=== PATIENT | male | born 1960 | race Caucasian/White ===

== ENCOUNTER 2022-11-07 16:44 | Outpatient (CLI) | payer BC, OTHER | END 2022-11-07 16:45 | disposition home or self-care (01) | LOC: CSHCT 16:44 | PROVIDERS: ATTEND Podiatrist Foot & Ankle Surgery | DX: L97.519 Non-pressure chronic ulcer of other part of right foot with unspecified severity (principal) ==

== ENCOUNTER 2022-12-06 09:54 | Day surgery (SDC) | payer BC ==
[2022-12-04 14:39] VITALS: BMI 30.2
[2022-12-06] MEDS ORDERED: Bupivacaine PF 0.5% 30 ML VIAL ONE (11:17)
[2022-12-06] MEDS ORDERED: Neomycin-Polymyxin 1 ML AMP ONE (11:18)
[2022-12-06] MEDS ORDERED: CEFAZOLIN 2 GM VIAL ONE (11:59)
== END 2022-12-06 14:06 | disposition home or self-care (01) ==
LOC: CSHSDC 09:54
PROVIDERS: ATTEND Podiatrist Foot & Ankle Surgery
PROC: 0SGP0JZ Fusion of Right Toe Phalangeal Joint with Synthetic Substitute, Open Approach (ICD-10-PCS; principal; 2022-12-06)
DX: L97.512 Non-pressure chronic ulcer of other part of right foot with fat layer exposed (principal); I12.0 Hypertensive chronic kidney disease with stage 5 chronic kidney disease or end stage renal disease; E11.22 Type 2 diabetes mellitus with diabetic chronic kidney disease; N18.6 End stage renal disease; E11.42 Type 2 diabetes mellitus with diabetic polyneuropathy; E78.00 Pure hypercholesterolemia, unspecified; Z94.0 Kidney transplant status; Z95.0 Presence of cardiac pacemaker
CPT/HCPCS: 36416; C1713; C1776; S0020

== ENCOUNTER 2023-01-02 16:37 | Outpatient (CLI) | payer BC | END 2023-01-02 16:38 | disposition home or self-care (01) | LOC: CSHRAD 16:37 | PROVIDERS: ATTEND Internal Medicine | DX: R05.9 Cough, unspecified (principal); R91.8 Other nonspecific abnormal finding of lung field | CPT/HCPCS: 71046 ==

== ENCOUNTER 2023-10-11 23:44 | Emergency (ER) | payer BC, OTHER ==
[2023-10-12] MEDS ORDERED: Ipratropium Bromide 2.5 ml Neb ONE (00:19)
[2023-10-12 00:40] LABS: SARS-CoV-2 NAA Rapid Test Not Detected (NotDetected)
[2023-10-12 00:51] LABS: #Monocytes 0.3 10x3/uL (0.0-1.1); #Neutrophils 3.7 10x3/uL (1.5-8.4); %Basophils 0.7 % (0.0-2.0); %Eosinophils 0.2 % (0.0-6.0); %Lymphocytes 10.4 % (18.0-47.0); %Neutrophils 82.3 % (40.0-75.0); Hematocrit 43.5 % (38.8-50.0); Hemoglobin 14.4 g/dL (13.5-17.5); Mean Corpuscular HGB CONC 33.1 g/dL (32.0-36.0); Mean Corpuscular Hemoglobin 30.3 pg (27.0-33.0); Mean Corpuscular Volume 91.4 fl (81.2-95.1); Mean Platelet Volume 8.7 fl (7.4-10.4); Platelet Count 168 10x3/uL (150-450); RBC Distribution Width 16.1 % (11.5-14.5); Red Blood Cell (RBC) Count 4.76 10x6/uL (4.32-5.72); White Blood Cell (WBC) Count 4.5 10x3/uL (3.5-10.5)
[2023-10-12 01:01] LABS: ALT (SGPT) 15 U/L (8-55); AST (SGOT) 16 U/L (5-34); Albumin 4.1 g/dL (3.4-4.8); Alkaline Phosphatase 58 U/L (40-110); Anion Gap 14 mmol/L (10-20); BUN (Urea Nitrogen) 13 mg/dL (8.4-25.7); Bilirubin, Total 0.8 mg/dL (0.2-1.2); Calc. Creatinine Clearance 0 mL/min (70-130); Calcium 9.7 mg/dL (7.8-10.44); Carbon Dioxide 27 mmol/L (23-31); Chloride 99 mmol/L (98-107); Estimated GFR 98; Glucose 155 mg/dL (80-115); Potassium 4.6 mmol/L (3.5-5.1); Protein, Total 7.1 g/dL (5.8-8.1); Sodium 135 mmol/L (136-145)
[2023-10-12 01:06] LABS: Troponin I Less than 0.010 ng/mL (< 0.028)
[2023-10-12] MEDS ORDERED: Labetalol HCl 100 MG/20 ML VIAL ONE (01:37)
== END 2023-10-12 04:45 | disposition short-term general hospital (02) ==
LOC: CSHERS 23:44
DX: J90 Pleural effusion, not elsewhere classified (principal); I11.0 Hypertensive heart disease with heart failure; I50.9 Heart failure, unspecified; E11.9 Type 2 diabetes mellitus without complications; J44.9 Chronic obstructive pulmonary disease, unspecified; Z20.822 Contact with and (suspected) exposure to COVID-19
CPT/HCPCS: 71045; 80053; 83605; 83880; 84484; 85025; 93005; 94644; 94760; 96374; J7611